=== PATIENT | male | born 1995 | race Caucasian/White ===

== ENCOUNTER 2018-06-11 13:52 | Emergency (ER) | payer OTHER ==
--- NOTE | 2018-06-11 14:38 | EDM.PDOC ---
ED HPI GENERAL MEDICAL PROBLEM - General Chief Complaint: Syncope Stated Complaint: PT FAINTED SENT BY CLINIC Time Seen by Provider: 06/11/18 14:03 Source of Information: Reports: Patient, Family (Mother), RN Notes Reviewed History Limitations: Reports: No Limitations - History of Present Illness INITIAL COMMENTS - FREE TEXT/NARRATIVE: The patient states that he passed out while urinating around 06:00 this morning. He states that he struck his left baptism on the sink when he fell, and also suffered an abrasion to his left elbow. He is not sure how long he may have been unconscious. He subsequently went back to bed, but when he woke up, he felt lightheaded when upright. No prior similar events. The patient denies having any recent illness, including vomiting or diarrhea. He states he drinks lots of water. The patient has a history of anxiety with panic disorder, depression, and schizotypal personality disorder. He is on numerous psychiatric medications. The patient's PCP is Dr. Hernan Mota. His Psychiatrist is Dr. Kitty Dickinson, in [place]. Left Head Pain Score (Numeric/FACES): 4 - Related Data Allergies Allergy/AdvReac Type Severity Reaction Status Date / Time lurasidone [From Latuda] Allergy Other Verified 06/11/18 14:02 Home Meds: Home Meds ARIPiprazole [Abilify] 5 mg PO DAILY 06/11/18 [History] Desvenlafaxine Succinate [Pristiq] 100 mg PO DAILY 06/11/18 [History] Doxepin [SINEquan] 10 mg PO QPM 06/11/18 [History] LORazepam 1 mg PO ASDIRECTED PRN 06/11/18 [History] Prazosin [Minpress] 1 mg PO QPM 06/11/18 [History] cloNIDine [Catapres] 0.1 mg PO ASDIRECTED PRN 06/11/18 [History] Past Medical History HEENT History: Reports: Impaired Vision Other HEENT History: wears glasses Psychiatric History: Reports: Anxiety, Depression, Panic Attack, Other (See Below) (Schizotypal personality disorder) - Past Surgical History HEENT Surgical History: Reports: Adenoidectomy, Oral Surgery (wisdom teeth extraction) GI Surgical History: Reports: Appendectomy Social & Family History - Tobacco Use Smoking Status *Q: Never Smoker Second Hand Smoke Exposure: No - Caffeine Use Caffeine Use: Reports: None - Alcohol Use Alcohol Use History: Yes Alcohol Use Frequency: Socially - Recreational Drug Use Recreational Drug Use: Yes Drug Use in Last 12 Months: No Recreational Drug Type: Reports: Marijuana/Hashish (Has smoked in the past. Last edible in 2017) - Living Situation & Occupation Living situation: Reports: Single, with Family Occupation: Employed ([employer]) ED ROS GENERAL - Review of Systems Review Of Systems: ROS reveals no pertinent complaints other than HPI. - Physical Exam Exam: See Below Exam Limited By: No Limitations General Appearance: Alert, WD/WN, No Apparent Distress Eye Exam: Bilateral Eye: EOMI, Normal Inspection Ears: Normal External Exam, Normal Canal, Hearing Grossly Normal, Normal TMs Nose: Normal Inspection, Normal Mucosa, No Blood Throat/Mouth: Normal Inspection, Normal Lips, Normal Teeth, Normal Gums, Normal Oropharynx, Normal Voice, No Airway Compromise Head Exam: Atraumatic (no visible injury to the left baptism), Normocephalic Neck: Normal Inspection, Supple, Non-Tender, Full Range of Motion. No: Lymphadenopathy (L), Lymphadenopathy (R) Respiratory/Chest: No Respiratory Distress, Lungs Clear, Normal Breath Sounds, No Accessory Muscle Use Cardiovascular: Normal Peripheral Pulses, Regular Rate, Rhythm, No Edema, No Gallop, No JVD, No Murmur, No Rub GI/Abdominal: Normal Bowel Sounds, Soft, Non-Tender, No Organomegaly, No Distention, No Abnormal Bruit, No Mass (Male) Exam: Deferred Rectal (Males) Exam: Deferred Neuro Exam (Abbreviated): Alert, Oriented, CN II-XII Intact, Normal Cognition, No Motor/Sensory Deficits Back Exam: Normal Inspection, Full Range of Motion, NT Extremities: Normal Inspection, Normal Range of Motion, No Pedal Edema, Normal Capillary Refill Psychiatric: Normal Affect Skin Exam: Warm, Dry, Intact, Normal Color, No Rash Course - Vital Signs Last Recorded V/S: Last Vital Signs Temp 36.7 C 06/11/18 14:07 Pulse 76 06/11/18 14:07 Resp 13 06/11/18 14:07 BP 127/81 06/11/18 14:07 Pulse Ox 100 06/11/18 14:07 Orthostatic Blood Pressure [ 123/71 Standing] Orthostatic Blood Pressure [ 121/71 Sitting] Orthostatic Blood Pressure [ 118/64 Supine] - Orders/Labs/Meds Labs: Laboratory Tests 06/11/18 06/11/18 Range/Units 15:05 15:05 WBC 4.92 (4.23-9.07) K/mm3 RBC 5.50 (4.63-6.08) M/mm3 Hgb 16.2 (13.7-17.5) gm/L Hct 46.5 (40.1-51.0) % MCV 84.5 (79.0-92.2) fl MCH 29.5 (25.7-32.2) pg MCHC 34.8 (32.2-35.5) g/dl RDW Std Deviation 40.6 (35.1-43.9) fL Plt Count 203 (163-337) K/mm3 MPV 10.0 (9.4-12.3) fl Neutrophils % (Manual) 66 H (40-60) % Band Neutrophils % 0 (0-10) % Lymphocytes % (Manual) 22 (20-40) % Atypical Lymphs % 8 % Monocytes % (Manual) 4 (2-10) % Eosinophils % (Manual) 0 L (0.8-7.0) % Basophils % (Manual) 0 L (0.2-1.2) Platelet Estimate Adequate Plt Morphology Comment Normal RBC Morph Comment Normal Sodium 143 (136-145) mEq/L Potassium 4.2 (3.5-5.1) mEq/L Chloride 104 (98-107) mEq/L Carbon Dioxide 31 (21-32) mEq/L Anion Gap 12.2 (5-15) BUN 10 (7-18) mg/dL Creatinine 0.9 (0.7-1.3) mg/dL Est Cr Clr Drug Dosing 131.81 mL/min Estimated GFR (MDRD) > 60 (>60) mL/min BUN/Creatinine Ratio 11.1 L (14-18) Glucose 92 (74-106) mg/dL Calcium 9.3 (8.5-10.1) mg/dL Magnesium 2.0 (1.8-2.4) mg/dl Total Bilirubin 0.5 (0.2-1.0) mg/dL AST 16 (15-37) U/L ALT 25 (16-63) U/L Alkaline Phosphatase 75 (46-116) U/L Total Protein 7.7 (6.4-8.2) g/dl Albumin 4.1 (3.4-5.0) g/dl Globulin 3.6 gm/dL Albumin/Globulin Ratio 1.1 (1-2) Meds: Medications Discontinued Medications Generic Name Dose Route Start Last Admin Trade Name Brock PRN Reason Stop Dose Admin Lactated Ringer's 1,000 mls @ 999 mls/hr 06/11/18 14:39 06/11/18 15:05 Ringers, Lactated IV 06/11/18 15:39 999 mls/hr .BOLUS ONE Administration - Re-Assessments/Exams Free Text/Narrative Re-Assessment/Exam: 06/11/18 14:36 The patient is orthostatic. He will receive 1 L of IVF, then have his orthostatics rechecked. Since we will be placing an IV, I will check some blood work, to make sure there are no significant abnormalities. 06/11/18 16:21 Following 1 L of LR, the patient is no longer orthostatic. 06/11/18 16:27 Test results discussed with the patient and his mother. His CBC, CMP, and Mg level were all unremarkable. I suspect that his orthostasis is related to his medications; Pristiq carries an 8% incidence of orthostasis (in the elderly), Risperdal carries a 4% incidence, and prazosin carries a 1-4% incidence. I am recommending that he stay adequately hydrated with Gatorade, Powerade, or Pedialyte. I am not recommending any changes in his medications at this time, since his orthostasis is able to be overcome with adequate hydration. He may safely be discharged home. Departure - Departure Time of Disposition: 16:35 Disposition: Home, Self-Care 01 Condition: Good Clinical Impression: Orthostatic syncope - Discharge Information *PRESCRIPTION DRUG MONITORING PROGRAM REVIEWED*: Not Applicable *COPY OF PRESCRIPTION DRUG MONITORING REPORT IN PATIENT DAVID: Not Applicable Instructions: Syncope, [id number] Referrals: Hernan Shukla MD [Primary Care Provider] - Kitty Dickinson [Ordering Only Provider] - Forms: ED Department Discharge Additional Instructions: You were seen in the emergency room after passing out in the bathroom this morning. Workup in the ER included blood work and positional blood pressure checks. Your blood work returned normal, however, if your blood pressure drop excessively between lying down and standing, a condition known as orthostasis. You were treated with IV fluid, and your orthostasis resolved. The cause of your orthostasis is most likely related to your medications, however, is able to be overcome if you stay adequately hydrated, therefore we are not recommending any changes in your medications at this time. We recommend that you stay adequately hydrated with Gatorade, Powerade, or Pedialyte. Follow-up with your PCP, Dr. Mota, as needed. If any other problems, please do not hesitate to return to the ER.
[2018-06-11] MEDS ORDERED: Lactated Ringers 1,000 ML IV ONE (14:39)
== END 2018-06-11 16:47 | disposition home or self-care (01) ==
LOC: JD.ED 13:52
DX: I95.1 Orthostatic hypotension (principal); F32.9 Major depressive disorder, single episode, unspecified; F41.9 Anxiety disorder, unspecified; Z88.8 Allergy status to other drugs, medicaments and biological substances; Z79.899 Other long term (current) drug therapy
CPT/HCPCS: 36415; 80053; 83735; 85007; 85027; 96360; 99284; J7120; 99283